=== PATIENT | female | born 1950 | race Caucasian/White ===

== ENCOUNTER 2025-03-26 11:33 | Emergency (ER) | payer OTHER, SELFPAY ==
[2025-03-26 11:44] VITALS: BP 92/69
[2025-03-26 12:05] LABS: Hematocrit 33.1 % (37.0-47.0); Hemoglobin 11.0 g/dL (12.0-16.0); Mean Corp Hgb Conc. 33.2 g/dL (33.0-37.0); Mean Corpuscular Volume 82.1 fL (81.0-99.0); Nucleated Red Blood Cells % 0 %; Platelet Count 405 10^3/uL (130-400); Red Cell Dist. Width 13.6 % (11.5-14.5)
[2025-03-26 12:18] LABS: INR 1.13; PT 14.8 Sec (11.4-14.6)
[2025-03-26 12:19] LABS: APTT 36.5 Sec (23.4-35.0)
[2025-03-26 12:21] LABS: D-Dimer 2.54 ug/mlFEU (0.00-0.50)
[2025-03-26 12:31] LABS: ALT (SGPT) 20 U/L (0-35); AST (SGOT) 21 U/L (14-36); Albumin 3.9 g/dl (3.5-5.0); Alkaline Phosphatase 79 U/L (38-126); Blood Urea Nitrogen 23 mg/dl (7-17); Calcium 8.9 mg/dl (8.4-10.2); Carbon Dioxide 26 mmol/L (22-30); Chloride 96 mmol/L (98-107); Glucose 156 mg/dl (70-99); Potassium 4.6 mmol/L (3.5-5.1); Sodium 131 mmol/L (135-145); Total Protein 6.9 g/dl (6.3-8.2); eGFR 53.39
[2025-03-26 12:34] LABS: Troponin I 0.020 ng/ml
[2025-03-26 15:37] VITALS: BP 94/62
--- NOTE | 2025-03-26 15:39 | ED.GENMED ---
History of Present Illness
General
Chief Complaint: Breathing Problem
Source: patient and spouse
Time Seen by Provider: 03/26/25 15:28
History of Present Illness
History of Present Illness:
This patient is a 74-year-old female who had a knee replacement on March 15. She was advised to increase her aspirin from 81 mg to a full dose each day. She has been compliant with this with the exception of today. For the last few days, she
notes she has had increasing episodes of lightheadedness and dyspnea particularly with exertion. This is limited her ability to participate in rehab. She denies fever, chills, cough, sore throat, rhinorrhea, orthopnea, headache, back pain. She is
having intermittent episodes of nausea, abdominal bloating, and constipation.
Past History
Past History
ED Past Medical History: CAD, HTN and Hypercholesterolemia
ED Past Surgical History: Orthopedic and Other (Cataracts)
Patient has exhibited threatening behavior?: No
Social History
Tobacco: Former smoker
Alcohol: Occasional
Drug: Marijuana
Personal:
Living: with family
Phy Exam
Physical Exam
Physical Exam:
GENERAL: Alert , in no apparent distress
EYE: pupils equal and reactive
NECK: Supple, no significant adenopathy.
ENT: o/p clr, mmm.
CARDIAC: Regular rate and rhythm .
LUNGS: Clear breath sounds bilaterally, no acute respiratory distress, no wheezes/rales/rhonchi
ABDOMEN: Soft, without focal tenderness, no r/g, no cvat
NEUROLOGICAL: Alert and oriented, no focal neuro deficits
SKIN: Warm and dry, skin intact. Right knee incision with Steri-Strips in place, no redness warmth swelling or drainage
MUSCULOSKELETAL: No edema, well perfused.
PSYCH: Normal and appropriate interaction.
Course
Orders/Labs/Results
Orders:
Orders
03/26/25 11:35
Electrocardiogram (*1) Stat
Reason for Study: Shortness of Breath
03/26/25 11:36
EKG- Treatment ONCE
03/26/25 11:58
Complete Blood Count/With Diff Urgent
Comprehensive Metabolic Panel Urgent
D-Dimer Urgent
PT/INR [Prothrombin Time] Urgent
PTT Urgent
Troponin I Urgent
03/26/25 15:38
CT Chest PE Study Urgent
Comment:
Reason For Exam: recent surgery, now sob
Cardiac Monitoring- Treatment ONCE
03/26/25 17:50
Troponin I Urgent
03/26/25 21:09
Troponin I Urgent
Abnormal Lab Results
03/26/25
11:58
WBC 18.9 H 10^3/uL
(4.8-10.8)
RBC 4.03 L 10^6/uL
(4.20-5.40)
Hgb 11.0 L g/dL
(12.0-16.0)
Hct 33.1 L %
(37.0-47.0)
Plt Count 405 H 10^3/uL
(130-400)
Abs Immat Gran (auto) 0.3 H 10^3/uL
(0-0.05)
Absolute Neuts (auto) 16.2 H 10^3/uL
(1.4-6.5)
Absolute Monos (auto) 0.9 H 10^3/uL
(0.1-0.6)
Immature Gran % 1.4 H %
(0-0.5)
Neutrophils % 85.5 H %
(42.2-75.2)
Lymphocytes % 8.0 L %
(20.5-51.1)
PT 14.8 H Sec
(11.4-14.6)
APTT 36.5 H Sec
(23.4-35.0)
D-Dimer 2.54 H ug/mlFEU
(0.00-0.50)
Sodium 131 L mmol/L
(135-145)
Chloride 96 L mmol/L
(98-107)
BUN 23 H mg/dl
(7-17)
Creatinine 1.1 H mg/dL
(0.6-1.0)
Glucose 156 H mg/dl
(70-99)
03/26/25 11:58
03/26/25 11:58
Vital Signs
Initial and Last Documented VS:
Initial Vital Signs
Temp Pulse Resp BP Pulse Ox
98.3 F 98 18 92/69 98
03/26/25 11:44 03/26/25 11:44 03/26/25 11:44 03/26/25 11:44 03/26/25 11:44
Last Documented Vital Signs
Temp Pulse Resp BP Pulse Ox
99.0 F 94 15 106/66 96
03/26/25 15:56 03/26/25 21:15 03/26/25 21:15 03/26/25 21:00 03/26/25 21:15
*Pulse Oximetry
SaO2: 98
Oxygen Mode of Delivery: Room air
Update Note
Update Note:
Patient presents to the Emergency Department with ___lightheadedness and dyspnea
Number and Complexity of Problems Addressed at the Encounter
� Chronic conditions affecting care:
� Acute Exacerbation and/or Progression of Chronic Illness:
� Differential Diagnosis includes: But not limited to pneumonia, PE, electrolyte disturbance, ACS, heart failure, etc. etc. etc.
Amount and/or Complexity of Data to be Reviewed and Analyzed
� I performed an independent evaluation of and my interpretation is:
EKG: Read by me, normal sinus rhythm, normal right, no acute ischemia
CT:Dr Dean no pe, no acute disease of the chest
Xrays:
Laboratory Studies: D-dimer noted to be elevated which is somewhat to be expected given recent surgery. Leukocytosis noted, questionable postsurgical, no recent for comparison. Mild anemia at 11 which is likely related to
recent surgery
Other:
� Review of other/old records reveals:
� Clinical information was obtained by an independent historian: who is bedside
� Prescriptions/Medications Considered but not given:
� Further testing considered but not performed:
Risk of Complications and/or Morbidity or Mortality of Patient Management
� Social determinants of health affecting care:
� Discussion with other providers (PCP, Hospitalists, Consultants, etc):
� Escalation of care including admission/observation vs risk of discharge considered: Patient remains comfortable and stable here, no complaints at this time. Extensive workup here unremarkable. Patient stable for discharge
with close follow-up.
ED Attending Note
-
Portions of this chart may have been created with voice recognition software.� Occasional wrong word or��sound alike� substitutions may have occurred due to the inherent limitations of voice recognition software.
Discharge Plan
Departure
Patient Disposition: Home (Routine Discharge)
Date of Disposition: 03/26/25
Time of Disposition: 22:14
Patient with high blood pressure during this ER visit?: No
Condition: Good
Discharge Problem:
lightheadedness, Dyspnea
Instructions: Shortness of Breath (Dyspnea) (DC), Dizziness in adults - ED (DC)
Prescriptions:
No Action
atorvastatin 40 MG tablet
40 mg PO QPM Qty: 30 3RF
clopidogrel 75 MG tablet
75 mg PO DAILY Qty: 90 3RF
aspirin 81 MG tablet,delayed release (DR/EC)
81 mg PO DAILY Qty: 0 0RF
Rx Instructions:
over the counter
nitroglycerin 0.4 MG tablet, sublingual
0.4 mg sublingual [id number] PRN (Reason: chest pain) Qty: 25 2RF
lisinopril 2.5 MG tablet
2.5 mg PO HS Qty: 30 3RF
metoprolol succinate 50 MG tablet extended release 24 hr
75 mg PO DAILY Qty: 45 3RF
hydrocodone-acetaminophen [Reubens] 1 EACH tablet
1 ea PO Q4HPRN PRN (Reason: severe pain) Qty: 10 0RF
Referrals:
Dallas Yo MD [Family Provider, Family Practice] - Follow up in 2-3 days
Activity Restrictions/Additional Instructions:
IF YOU DEVELOP RECURRENT OR NEW CHEST PAIN, TROUBLE BREATHING, ANY FEVER, BLEEDING, VOMITING, NUMBNESS, CHANGE IN SPEECH, CHANGE IN VISION, FEELING OFF BALANCE, OR OTHER WORRISOME SIGNS, PLEASE RETURN TO THE ER IMMEDIATELY EXCLAMATION
Interventions
Interventions:
*Risk Screen - Suicide Last Done: 03/26/25 11:44
*General Assessment Last Done: 03/26/25 11:44
*Neglect/Abuse Screening Last Done: 03/26/25 16:03
*ED- Fall Risk Assessment Last Done: 03/26/25 16:03
*ED COVID-19 Vaccine History Last Done: 03/26/25 16:03
ED- Cardiac Assessment Last Done: 03/26/25 15:56
ED- Pulmonary Assessment Last Done: 03/26/25 15:56
Discharge Date and Time
Print Language: [id number]
[2025-03-26 15:56] VITALS: BMI 32.3
[2025-03-26 18:27] VITALS: BP 105/68
[2025-03-26 18:30] LABS: Troponin I 0.024 ng/ml
[2025-03-26 19:00] VITALS: BP 103/63
[2025-03-26 20:00] VITALS: BP 102/67
[2025-03-26 21:00] VITALS: BP 106/66
[2025-03-26 21:42] LABS: Troponin I 0.018 ng/ml
== END 2025-03-26 22:32 | disposition home or self-care (01) ==
LOC: EMR 11:33
PROVIDERS: Emergency Medicine; EMERGENCY PHYSICIAN Emergency Medicine; FAMILY PHYSICIAN Family Medicine
DX: R42 Dizziness and giddiness (principal); R06.09 Other forms of dyspnea; Z87.891 Personal history of nicotine dependence; Z96.659 Presence of unspecified artificial knee joint
CPT/HCPCS: 99285; 71275; 80053; 84484; 85025; 85379; 85610; 85730; 93005; Q9967